=== PATIENT | male | born 1950 | race African-American/Black ===

== ENCOUNTER 2021-07-20 18:23 | Emergency (ER) | payer OTHER ==
[~2021-07-20] VITALS: Ht 180.3 cm; Wt 68.0 kg
--- NOTE | 2021-07-20 18:32 | NUR ---
PT bibpa, and RT, from HD center, high blood pressure after dialysis. denies any pain denies any pain. [facility]. [facility]%. TOLERATING VENT SETTINGS: PEEP 50, FIO2 40%, VT 450. RCW HD PORTACATH INTACT. SWATI HF AV SHUNT. ALUMINUM MOLDING MACHINE OPERATOR BE IV #18; PATENT AND INTACT. CONNECTED PT TO POX AND MONITOR
--- NOTE | 2021-07-20 18:36 | NUR ---
RT Pt brought into ER, pt is trached on mechanical ventilation. Pt switched over to hospital vent with noted settings by transport RT. Pt is awake and alert and refusing suctioning. No SOB or respiratory distress noted. Addendum: 07/20/21 at 1848 by ALY GOLDSMITH RT Amended: Links added.
--- NOTE | 2021-07-20 18:56 | NUR ---
CONDUCTOR PULLMAN AT PT'S BEDSIDE; PT REFUSED AT THIS TIME
--- NOTE | 2021-07-20 19:01 | NUR ---
HR BUSINESS PARTNER CONSULTANT AT PT'S BEDSIDE
--- NOTE | 2021-07-20 19:27 | NUR ---
RT AT PT'S BEDSIDE
[2021-07-20 19:28] LABS: CARBON DIOXIDE 26 mmol/L (21-32); CHLORIDE 103 mmol/L (98-107); CREATININE 3.1 mg/dL (0.6-1.3); GLUCOSE 83 mg/dL (74-106); POTASSIUM 3.4 mmol/L (3.5-5.1); SODIUM SERUM 134 mmol/L (136-145); UREA NITROGEN, BLOOD 23 mg/dL (7-18)
--- NOTE | 2021-07-20 19:35 | NUR ---
RT Pt received awake, alert[facility] SIMV settings. No signs of resp distress/SOB noted. Airway patent and secured. COUPON COLLECTION CLERK done. Pt suctioned. Alarms set and audible. Ambubag at bedside. Vent plugged into red outlet. Addendum: 07/21/21 at 0305 by RENZO KATZ RT Amended: Links added.
[2021-07-20 19:51] LABS: BASOPHILS % (AUTO) 0.4 % (0.0-2.0); EOSINOPHILS % (AUTO) 1.1 % (0.0-6.0); HEMATOCRIT 32 % (39-51); LYMPHOCYTES # (AUTO) 0.9 K/uL (0.8-4.8); LYMPHOCYTES % (AUTO) 17.7 % (20.0-44.0); MEAN CORPUSCULAR HGB CONC 31 g/dl (31.0-36.0); MEAN CORPUSCULAR VOLUME 87 fL (80-96); MONOCYTES # (AUTO) 0.5 K/uL (0.1-1.30); MONOCYTES % (AUTO) 9.4 % (2.0-12.0); NEUTROPHILS # (AUTO) 3.8 K/uL (1.8-8.9); NEUTROPHILS % (AUTO) 71.4 % (43.0-81.0); PLATELET COUNT (AUTO) 137 K/uL (150-450); WHITE BLOOD COUNT (AUTO) 5.3 K/uL (4.3-11.0)
[2021-07-20 20:11] LABS: BAND % (MANUAL) 5 % (0.0-5.0); LYMPHOCYTES % (MANUAL) 10 % (16-48); MONOCYTES % (MANUAL) 9 % (0-11.0); NEUTROPHILS % (MANUAL) 76 (42-76)
[2021-07-20] MEDS ORDERED: hydrALAZINE HCL IV 20 MG VIAL IV ONE ×2 (20:30→22:00)
[2021-07-20] MEDS ORDERED: hydrALAZINE HCL IV 20 MG VIAL ONE ×2 (20:44→21:57)
--- NOTE | 2021-07-20 23:08 | NUR ---
SARKIS WITH RT BY [facility] IS SCHEDULED FOR 07/21/21 @ 1000
--- NOTE | 2021-07-21 07:22 | NUR ---
ASSESSED PT ON BED ON VENT VIA TRACH, AAOX4, V/S STABLE, KEPT RESTED AND COMFORTABLE. AWAITING TRANSPORT GOING BACK TO FACILITY.
[2021-07-21] MEDS ORDERED: hydrALAZINE HCL IV 20 MG VIAL ONE (09:55)
[2021-07-21] MEDS ORDERED: hydrALAZINE HCL IV 20 MG VIAL IV ONE (10:00)
--- NOTE | 2021-07-21 10:20 | NUR ---
REPORT GIVEN TO NOTARY PUBLIC FOR PT DISCHARGED BACK TO FACILITY.
--- NOTE | 2021-07-21 10:24 | NUR ---
REPORT GIVEN TO LUTHER HOLBROOK FOR PT TRANSPORT BACK.
[2021-07-21 10:32] VITALS: BP 144/67
== END 2021-07-21 10:33 | disposition hospice, inpatient (51) ==
LOC: ER 18:33
DX: I12.0 Hypertensive chronic kidney disease with stage 5 chronic kidney disease or end stage renal disease (principal); E11.22 Type 2 diabetes mellitus with diabetic chronic kidney disease; N18.6 End stage renal disease; D63.1 Anemia in chronic kidney disease; D69.6 Thrombocytopenia, unspecified; Z99.2 Dependence on renal dialysis; Z93.0 Tracheostomy status; Z93.1 Gastrostomy status; Z98.890 Other specified postprocedural states
CPT/HCPCS: 31720; 36415; 71045; 80048; 84484; 85007; 85025; 93005 ×2; 94002; 96374; 96376 ×2; 99285; J0360 ×3

== ENCOUNTER 2021-07-24 19:08 | Emergency (ER) | payer MEDICARE, OTHER ==
[~2021-07-24] VITALS: Ht 185.4 cm; Wt 79.8 kg
--- NOTE | 2021-07-24 19:28 | NUR ---
PATIENT BIBPA FROM HD CENTER C/O HIGH BLOOD PRESSURE. PATIENT IS A/O X 4, RR EVEN AND UNLABORED, NO SOB NOTED. PATIENT TOLERATING VENT SETTING WELL, RT AT BEDSIDE. PATIENT CONNECTED TO HALVER MACHINE OPERATOR AND POX.
--- NOTE | 2021-07-24 19:29 | NUR ---
ER AT BEDSIDE
[2021-07-24] MEDS ORDERED: hydrALAZINE HCL IV 20 MG VIAL ONE (19:49)
--- NOTE | 2021-07-24 19:49 | NUR ---
RT NOTE Pt rec'd trached on mech vent on SIMV mode. Pt awake and alert. Pt shows no signs of resp distress or sob. Trach is patent and secured. Pt sx'd for thick mod amt of yellow secretions. Alarms are set and audible. Vent plugged into red outlet. Ambu bag and emergency spare trach at bedside. Will continue to monitor closely. Addendum: 07/24/21 at 1950 by BRENT MILLER RT Amended: Links added.
[2021-07-24] MEDS: hydrALAZINE HCL IV 20 MG VIAL IV ONE (19:52)
--- NOTE | 2021-07-24 20:07 | NUR ---
[facility] [phone]
--- NOTE | 2021-07-24 22:31 | NUR ---
PT SENT BACK TO [facility] VIA ACLS PROTOCOL IN STABLE CONDITION, ACCOMPANIED BY 3 EMT PERSONNEL. REPORT GIVEN TO Rafi GALEANA. TELEPHONE CALL TO [facility], REPORT GIVEN TO SARAH SLOAN, STATED PT IS DUE FOR HYDRALAZINE 25 MG, COREG 25 MG, AND ISOSORBIDE 5 MG.
[2021-07-24 22:35] VITALS: BP 147/61
== END 2021-07-24 22:35 ==
LOC: ER 19:13
DX: I12.0 Hypertensive chronic kidney disease with stage 5 chronic kidney disease or end stage renal disease (principal); E11.22 Type 2 diabetes mellitus with diabetic chronic kidney disease; N18.6 End stage renal disease; J96.10 Chronic respiratory failure, unspecified whether with hypoxia or hypercapnia; D64.9 Anemia, unspecified; M32.9 Systemic lupus erythematosus, unspecified; Z99.2 Dependence on renal dialysis
CPT/HCPCS: 96374; 99283; J0360

== ENCOUNTER 2021-07-24 23:43 | Emergency (ER) | payer MEDICARE, OTHER ==
[~2021-07-24] VITALS: Ht 185.4 cm; Wt 79.8 kg
--- NOTE | 2021-07-25 00:15 | NUR ---
BIBPA SENT BACK BY THE FACILITY D/T PT'S BP IS STILL ELEVATED. PT IS AAOX2. VENT AND TRACH DEPENDENT, NOT IN DISTRESS.PT'S BP REPORTED WITH SBP IN THE 190S. PT WAS JUST DISCHARGED AND GIVEN HYDRALAZINE. PT TO ROOM 8. MD AT BEDSIDE. AWAITING ORDERSS
--- NOTE | 2021-07-25 02:14 | NUR ---
CALLED [facility] FOR TRANSPORT BACK TO HIS FACILITY. [facility] CANNOT TRANSFER THE PATIENT TWICE IN THE SAME DAY
--- NOTE | 2021-07-25 02:56 | NUR ---
CALLED [facility] FOR VENT AND TRACH TRANSPORT. NO AVAILABLE AT THIS TIME, CALL AFTER 0700
--- NOTE | 2021-07-25 03:01 | NUR ---
CALLED [facility]. ADVICED TO CALL BACK AT 0600. CURRENTLY NO AVAILABLE.
--- NOTE | 2021-07-25 03:02 | NUR ---
CALLED [facility] FOR TRANSPORT, NO AVAILABLE. "DIALYSIS DAY"
--- NOTE | 2021-07-25 03:15 | NUR ---
NURSE SARAH AT THE [facility] WAS NOTIFIED THAT THE PATIENT IS GOING BACK BUT STILL WAITING TO GET TRANSPORT. WILL CALL FOR ETA
--- NOTE | 2021-07-25 06:13 | NUR ---
PT IN BED SLEEPING. NO DISTRESS NOTED
--- NOTE | 2021-07-25 06:42 | NUR ---
[facility] TOE CLOSING MACHINE TENDER AT [phone]
--- NOTE | 2021-07-25 06:45 | NUR ---
NURSE SRAAH WAS MADE AWARE OF LICENSED AIRCRAFT MAINTENANCE ENGINEER ETA [phone]
--- NOTE | 2021-07-25 07:24 | NUR ---
PT FACILITY: [facility] [phone]
--- NOTE | 2021-07-25 08:00 | NUR ---
THE PATEINT VENT/TRACH AND KELLY SETTINGS WELL. IN NO APPARENT DISTRESS.
[2021-07-25] MEDS ORDERED: hydrALAZINE HCL IV 20 MG VIAL ONE (10:39)
[2021-07-25] MEDS ORDERED: hydrALAZINE HCL IV 20 MG VIAL IV ONE (11:00)
--- NOTE | 2021-07-25 11:00 | NUR ---
REPORT GIVEN TO NURSE WILSON
--- NOTE | 2021-07-25 11:05 | NUR ---
REPORT GIVEN TO AMBULANCE STAFF. THE PATIENT IS DISCHARGED TO [facility] IN STABLE CONDITION.
[2021-07-25 11:06] VITALS: BP 148/69
== END 2021-07-25 11:07 ==
LOC: ER 23:51
DX: I12.0 Hypertensive chronic kidney disease with stage 5 chronic kidney disease or end stage renal disease (principal); E11.22 Type 2 diabetes mellitus with diabetic chronic kidney disease; N18.6 End stage renal disease; D63.1 Anemia in chronic kidney disease; Z99.2 Dependence on renal dialysis
CPT/HCPCS: 31720; 94002; 96374; 99284; J0360

== ENCOUNTER 2021-08-26 17:58 | Emergency (ER) | payer MEDICARE, OTHER ==
[~2021-08-26] VITALS: Ht 182.9 cm; Wt 73.0 kg
--- NOTE | 2021-08-26 18:07 | NUR ---
PT NICA [facility] C/O HIGH BP 205/193 POST DIALYSIS, DIALYSIS SCHEDULE MWF. SWATI HD AV FISTUALA NOTED. NAOMI TO LAC; NO BLEEDING OR INFECTION NOTED. RCA HD PERMACATH INTACT. PT A/OX3. ON O2 4LPM VIA TRACH COLLAR; TOLERATING WELL AT 96%. CONNECTED PT TO POX AND MONITOR.
--- NOTE | 2021-08-26 18:28 | NUR ---
LAW CAVAZOS AT PT'S BEDSIDE
--- NOTE | 2021-08-26 18:45 | NUR ---
RAC #20G S/L; PATENT AND INTACT. BLOOD COLLECTED AND GIVEN TO LAB
[2021-08-26] MEDS ORDERED: ENALAPRILAT DIHYD. (2.5MG/2ML) 1.25 MG/ML VIAL IV ONE (19:05)
[2021-08-26] MEDS ORDERED: ENALAPRILAT INJ (1.25 MG/ML) 1.25 MG/ML VIAL IV ONE (19:06)
[2021-08-26] MEDS: ENALAPRILAT DIHYD. (2.5MG/2ML) 1.25 MG/ML VIAL IV ONE (19:14)
[2021-08-26 19:29] LABS: CALCIUM, SERUM 8.5 mg/dL (8.5-10.1); CREATININE 3.1 mg/dL (0.6-1.3); POTASSIUM 3.2 mmol/L (3.5-5.1)
[2021-08-26 19:56] LABS: BASOPHILS % (AUTO) 0.3 % (0.0-2.0); EOSINOPHILS % (AUTO) 3.1 % (0.0-6.0); HEMATOCRIT 43 % (39-51); LYMPHOCYTES # (AUTO) 0.9 K/uL (0.8-4.8); LYMPHOCYTES % (AUTO) 16.1 % (20.0-44.0); MEAN CORPUSCULAR HGB CONC 31 g/dl (31.0-36.0); MEAN CORPUSCULAR VOLUME 88 fL (80-96); MONOCYTES # (AUTO) 0.8 K/uL (0.1-1.30); NEUTROPHILS # (AUTO) 3.6 K/uL (1.8-8.9); NEUTROPHILS % (AUTO) 66.5 % (43.0-81.0); PLATELET COUNT (AUTO) 157 K/uL (150-450); RED BLOOD CELL COUNT(AUTO) 4.85 MIL/uL (4.5-6.0); WHITE BLOOD COUNT (AUTO) 5.4 K/uL (4.3-11.0)
--- NOTE | 2021-08-26 20:03 | NUR ---
RT AT PT'S BEDSIDE
--- NOTE | 2021-08-26 20:10 | NUR ---
RT NOTE PT RECEIVED ON T-MASK WITH PMV. PT IS AWAKE/ALERT AND ABLE TO RESPOND TO COMMANDS. NO RESPIRATORY DISTRESS NOTED AT THIS TIME. PT HAS VENT ON STANDBY. WILL CONTINUE TO MONITOR. NO SUCTION NEEDED AT THIS TIME.
--- NOTE | 2021-08-26 20:31 | NUR ---
TRANSPORT BY [facility] [phone] ETA 90 MIN.
[2021-08-26] MEDS ORDERED: LABETALOL HCL IV 100MG VIAL ONE (21:07)
[2021-08-26] MEDS: LABETALOL 20 MG/4 ML VIAL IV ONE (21:14)
--- NOTE | 2021-08-26 21:28 | NUR ---
REPORT GIVEN TO SANDEEP LIEBERMAN FROM [facility].
[2021-08-26] MEDS ORDERED: CLONIDINE HCL 0.1 MG TABLET ONE (21:56)
--- NOTE | 2021-08-26 22:05 | NUR ---
Dejan martínez in [facility] - 08/26/21 at 2212 by GIBSON PER CHALO DECKER TO D/C [facility] BED 307 B
[2021-08-26 22:11] VITALS: BP 183/96
[2021-08-26] MEDS: CLONIDINE HCL 0.1 MG TABLET GT ONE (22:11)
--- NOTE | 2021-08-26 23:17 | NUR ---
REPORT GIVEN TO DEMETRA REEDER EMT. PT DC TO [facility]
== END 2021-08-26 23:21 ==
LOC: ER 18:40
DX: I12.0 Hypertensive chronic kidney disease with stage 5 chronic kidney disease or end stage renal disease (principal); E11.22 Type 2 diabetes mellitus with diabetic chronic kidney disease; N18.6 End stage renal disease; D63.1 Anemia in chronic kidney disease; M32.10 Systemic lupus erythematosus, organ or system involvement unspecified; Z99.2 Dependence on renal dialysis
CPT/HCPCS: 36415; 80048; 85025; 93005; 96374; 96375; 99291; J3490 ×3

== ENCOUNTER 2021-08-27 01:36 | Emergency (ER) | payer MEDICARE, OTHER ==
[~2021-08-27] VITALS: Ht 175.3 cm; Wt 73.0 kg
--- NOTE | 2021-08-27 02:00 | NUR ---
NICA C/O HIGH BLOOD PRESSURE FROM [facility] . PATIENT WAS D/C FROM ER EARLIER. CURRENT BP 154/85. PLACED IN BED 10 ON MONITOR AND POX.
[2021-08-27] MEDS ORDERED: hydrALAZINE HCL 25 MG TABLET PO ONE (05:00)
[2021-08-27] MEDS ORDERED: hydrALAZINE HCL 25 MG TABLET ONE (05:41)
--- NOTE | 2021-08-27 07:35 | NUR ---
PT LAYING IN BED COMFORTABLY. AAOX4, NO PRESENT COMPLAINTS
--- NOTE | 2021-08-27 09:45 | NUR ---
AAOX4, BREATHING EVEN AN UNLABORED. BP 141/71
--- NOTE | 2021-08-27 10:17 | NUR ---
CALLED MONORAIL CRANE OPERATOR FOR CONSULT.
--- NOTE | 2021-08-27 10:20 | NUR ---
DWIGHT called [facility] [phone] and [facility], Og and pt.'s nurse at [facility] for nurse to nurse report. DWIGHT then called Maurizio perez and notified him to arrange tranport back to [facility].
--- NOTE | 2021-08-27 10:37 | NUR ---
[facility] BLS TRANSPORT ETA 1130.
--- NOTE | 2021-08-27 10:53 | NUR ---
SW called [facility] [phone] and notified charge nurse of patient's ETA.
[2021-08-27] MEDS ORDERED: CLONIDINE HCL 0.1 MG TABLET PO ONE ×2 (11:00→13:00)
--- NOTE | 2021-08-27 11:01 | NUR ---
BP 173/83, MD aware
[2021-08-27] MEDS ORDERED: CLONIDINE HCL 0.1 MG TABLET ONE ×2 (11:03→11:53)
--- NOTE | 2021-08-27 12:20 | NUR ---
Patient discharged to facility in stable condition. Written and verbal after care instructions given. Patient verbalizes understanding of instruction.
[2021-08-27 12:40] VITALS: BP 162/80
== END 2021-08-27 12:30 ==
LOC: ER 01:43
DX: I12.0 Hypertensive chronic kidney disease with stage 5 chronic kidney disease or end stage renal disease (principal); E11.22 Type 2 diabetes mellitus with diabetic chronic kidney disease; N18.6 End stage renal disease; Z99.2 Dependence on renal dialysis